=== PATIENT | female | born 1965 | race Caucasian/White ===

== ENCOUNTER 2018-05-20 09:23 | Day surgery (SDC) | payer OTHER ==
[2018-05-13 11:58] VITALS: BMI 30.7
[2018-05-20] MEDS ORDERED: PROPOFOL 20 ML ONE (09:47)
[2018-05-20] MEDS ORDERED: MIDAZOLAM HCL 2 MG/2 ML SINGLE DOSE VIAL ONE (09:47)
[2018-05-20] MEDS ORDERED: DEXAMETHASONE SOD PHOSPHATE 4 MG/1 ML VIAL ONE (09:48)
[2018-05-20] MEDS ORDERED: KETOROLAC TROMETHAMINE 30 MG/1 ML VIAL ONE (09:48)
[2018-05-20] MEDS ORDERED: ONDANSETRON 4 MG/2 ML VIAL ONE ×2 (09:48→10:50)
[2018-05-20] MEDS ORDERED: LIDOCAINE HCL 2% (50ML VIAL) INF ONE (10:18)
[2018-05-20] MEDS ORDERED: oxyCODONE HCL 5 MG TABLET PO PRN (11:38)
[2018-05-20] MEDS ORDERED: ONDANSETRON 4 MG/2 ML VIAL IVPUSH PRN (11:38)
[2018-05-20] MEDS ORDERED: LACTATED RINGERS SOLUTION 1,000 ML IV SCH (11:45)
[2018-05-20] MEDS ORDERED: oxyCODONE HCL 5 MG TABLET ONE (11:49)
[2018-05-20 12:02] VITALS: PULSE 87; TEMP 98
[2018-05-20 12:12] VITALS: BP 130/78
--- NOTE | 2018-05-21 14:07 | OP ---
DATE OF OPERATION: 05/20/2018 PREOPERATIVE DIAGNOSES: 1. Left carpal tunnel syndrome. 2. Left trigger thumb. OPERATIVE PROCEDURE: 1. Left carpal tunnel release. 2. Left trigger thumb release. SURGEON: Wallace Vazquez MD ANESTHESIA: Local with sedation. COMPLICATIONS: None. ESTIMATED BLOOD LOSS: Minimal. INDICATION FOR PROCEDURE: The patient is a 52-year-old female with the above finding, indicated for operative treatment. Risks, benefits, and alternatives were discussed with the patient at length. Proper informed consent was obtained. DESCRIPTION OF PROCEDURE: After proper identification of the patient and correct operative site, patient was brought to the operating room, placed supine on the table. All prominences were well padded. Sedation and local anesthesia were given. The left upper extremity was prepped and draped in usual sterile fashion. Esmarch bandage to exsanguinate the left upper extremity. Tourniquet was inflated to 250 mmHg. A longitudinal incision was made in the proximal aspect of the palm. Incision was taken sharply through the skin, with blunt and sharp dissection through the subcutaneous tissues. Palmar fascia was divided longitudinally. The transcarpal ligament along with the distal 4 cm of the antebrachial fascia was divided longitudinally under direct visualization with loupe magnification. This provided complete release of the median nerve at the wrist. Wound was irrigated and repaired with a 5-0 nylon suture. A second incision was made over the thumb A1 sandra. Incision was taken sharply through the skin, with blunt dissection through the subcutaneous tissues. Sensory nerves were carefully protected. The A1 sandra was identified and divided. No further triggering occurred after this. Wound was repaired with a 5-0 nylon suture. Sterile dressings were applied. Patient was reversed from anesthesia and brought to recovery in stable condition. She tolerated the procedure well. WALLACE VAZQUEZ M.D. [id number]
== END 2018-05-20 12:18 | disposition home or self-care (01) ==
LOC: FASU 09:23
PROVIDERS: ATTEND Orthopaedic Surgery Hand Surgery
PROC: 01N50ZZ Release Median Nerve, Open Approach (ICD-10-PCS; principal; 2018-05-20 10:00)
PROC: 0LN80ZZ Release Left Hand Tendon, Open Approach (ICD-10-PCS; 2018-05-20 10:00)
DX: G56.02 Carpal tunnel syndrome, left upper limb (principal); M65.312 Trigger thumb, left thumb
CPT/HCPCS: 94760